=== PATIENT | female | born 1995 | race Caucasian/White ===

== ENCOUNTER 2020-03-24 12:00 | Observation (INO) ==
[2020-03-24 11:25] LABS: Influenza A PCR Negative (Negative); Influenza B PCR Negative (Negative); Resp. Syncytial Virus PCR Negative (Negative)
[2020-03-24 11:26] LABS: SARS-CoV-2 by PCR (In House) Negative (Negative)
[~2020-03-24 12:00] MED LIST: *HR* FentaNYL (PF) 100 MCG/2 ML VIAL ONE; *HR* Propofol 200 MG/20 ML VIAL IVP ONE; Acetaminophen IV 1,000 MG/100 ML BAG IVPB ONE; Dexamethasone 4 MG/ML VIAL ONE; Lidocaine -MPF 2% 5 ML VIAL ONE; Ondansetron 4 MG/2 ML VIAL ONE; Promethazine 6.25 MG in Water for inj. (sterile) 20 ML IVPB PRN; Ringers Solution, Lactated 1,000 ML IVC SCH; Ringers Solution, Lactated 1,000 ML ONE; Scopolamine Patch 1.5 MG PATCH.TD72 TD ONE
[2020-03-24] MEDS ORDERED: Ringers Solution, Lactated 1,000 ML ONE (12:10)
[2020-03-24] MEDS ORDERED: Ketorolac 30 MG/ML VIAL ONE (12:10)
[2020-03-24] MEDS ORDERED: Ringers Solution, Lactated 1,000 ML IVC SCH (12:30)
[2020-03-24] MEDS: *HR* HYDROmorphone PF 0.5 MG/0.5 ML SYRINGE IVP PRN ×2 (12:47→13:07)
[2020-03-24] MEDS ORDERED: *HR* Meperidine 25 MG/ML SYRINGE IVP PRN (13:59)
[2020-03-24] MEDS ORDERED: *HR* Meperidine 50 MG/ML SYRINGE ONE (14:05)
[2020-03-24] MEDS ORDERED: *HR* HYDROcodone/Acet 5/325 mg TABLET PO ONE (14:50)
[2020-03-24] MEDS ORDERED: Ibuprofen 600 MG TABLET PO ONE (14:51)
[2020-03-24 19:08] VITALS: BP 127/69
== END 2020-03-24 20:00 | disposition home or self-care (01) ==
LOC: 1NENULAB → EDSTATUS 12:00
PROVIDERS: ADMIT Obstetrics & Gynecology; ATTEND Obstetrics & Gynecology